=== PATIENT | female | born 1935 | race African-American/Black ===

== ENCOUNTER 2018-01-10 09:57 | Emergency (ER) | payer MEDICARE ==
[~2018-01-10] VITALS: Ht 165.1 cm; Wt 74.0 kg
[~2018-01-10 09:57] MED LIST: ASPI81 PO; CARV12.5 PO; ERGO50000 PO; HYDR12.56 PO; LISI-593 PO; MECL-62 PO; SPIR25TA PO
[2018-01-10 10:05] VITALS: BP 188/86; PULSE 109; RESP 16; TEMP 100.1; O2SAT 98
[2018-01-10] MEDS ORDERED: HYDR12.57 PO (10:35)
[2018-01-10] MEDS ORDERED: CARV12.52 PO (10:35)
[2018-01-10] MEDS ORDERED: LISI40TA PO (10:35)
[2018-01-10] MEDS ORDERED: LORTS PO (10:35)
[2018-01-10] MEDS ORDERED: LORA-392 PO (10:35)
[2018-01-10] MEDS ORDERED: CILO50TA PO (10:35)
[2018-01-10] MEDS ORDERED: ASPI81TA23 PO (10:35)
[2018-01-10] MEDS ORDERED: GLIP5TAB8 PO (10:35)
[2018-01-10] MEDS ORDERED: SPIR25TA PO (10:35)
[2018-01-10] MEDS ORDERED: NEUR600T PO (10:35)
[2018-01-10] MEDS ORDERED: MECL-62 PO (10:35)
[2018-01-10] MEDS ORDERED: DEXT1TAB18 PO (10:48)
--- NOTE | 2018-01-10 10:48 | PD ---
HPI Chief Complaint: Cold / Flu Symptoms Time Seen by Provider: 10:10 Travel History International Travel<30 days: No Contact w/Intl Traveler<30days: No Traveled to known affect area: No History of Present Illness HPI Is an 82-year-old woman who presents to the emergency department complaining of cough cold symptoms ongoing for the past several days. She has been sick for about 3 days now. She is a cough congestion body aches. Fevers and chills since today. Some headache with this as well. Little bit of left-sided earache. No nausea vomiting diarrhea, no chest pain, shortness of breath. No definite sick contacts. No history of lung disease. She otherwise had been feeling well and healthy prior to this. History Past Medical History Narrative Medical Diabetes CAD, history of stent Hypertension Possible chronic kidney disease, being followed by her doctor on blood work Tetanus Vaccination: Unknown Influenza Vaccination: No Para: 2 Social History Alcohol Use: Yes (occas) Tobacco Use: No Allergies-Medications (Allergen,Severity, Reaction): Coded Allergies: propoxyphene (Verified Allergy, Severe, Itching, 01/10/18) Opioids - Morphine Analogues (Verified Allergy, Intermediate, Hallucinations, 01/10/18) Reported Meds & Prescriptions Reported Meds & Active Scripts Active Mucinex DM Maximum Strength (Dextromethorphan-Guaifenesin ER 12 HR) 60-1,200 Mg Tab 1 Tab PO BID PRN 7 Days Reported Cilostazol 50 Mg Tab 50 Mg PO BID [Lortab] 5-325 Mg PO Q6HR Spironolactone 25 Mg Tab 25 Mg PO DAILY Ativan (Lorazepam) 0.5 Mg Tab 0.5 Mg PO Q6H PRN Glipizide 5 Mg Tab 5 Mg PO DAILY Take 30 minutes before a meal Neurontin (Gabapentin) 600 Mg Tab 600 Mg PO TID Meclizine (Meclizine HCl) 25 Mg Tab 25 Mg PO DIRECTED PRN Hydrochlorothiazide 12.5 Mg Cap 12.5 Mg PO DAILY Lisinopril 40 Mg Tab 40 Mg PO DAILY Carvedilol 12.5 Mg Tab 12.5 Mg PO BID Aspirin EC (Aspirin) 81 Mg Tabdr 81 Mg PO DAILY Review of Systems Except as stated in HPI: all other systems reviewed are Neg Physical Exam Narrative GENERAL: Well-appearing 82-year-old woman, no acute distress. SKIN: Focused skin assessment warm/dry. HEAD: Atraumatic. Normocephalic. EYES: Pupils equal and round. No scleral icterus. No injection or drainage. ENT: No nasal bleeding or discharge. Mucous membranes pink and moist. TMs normal. Throat is normal peer NECK: Trachea midline. No JVD. No significant adenopathy. CARDIOVASCULAR: Regular rate and rhythm. No murmur appreciated. RESPIRATORY: No accessory muscle use. Clear to auscultation. Breath sounds equal bilaterally. GASTROINTESTINAL: Abdomen soft, non-tender, nondistended. Hepatic and splenic margins not palpable. MUSCULOSKELETAL: No obvious deformities. No clubbing. No cyanosis. No edema. NEUROLOGICAL: Awake and alert. No obvious cranial nerve deficits. Motor grossly within normal limits. Normal speech. Data Data Last Documented VS Vital Signs Date Time Temp Pulse Resp B/P (MAP) Pulse Ox O2 Delivery O2 Flow Rate FiO2 01/10/18 10:05 100.1 109 16 188/86 (120) 98 Orders Orders Influenzae A/B Antigen (01/10/18 10:11) [facility] Medical Decision Making Medical Screen Exam Complete: Yes Emergency Medical Condition: Yes Interpretation(s) Influenza negative Differential Diagnosis Influenza, bronchitis, pneumonia, other Narrative Course Medical decision making INITIAL: 82-year-old woman presents emerged from a upper respiratory infection symptoms. Some low-grade fever. Normal pulmonary exam. Looks well. Likely acute bronchitis. Recommend supportive treatment. Diagnosis Primary Impression: Acute bronchitis Additional Instructions: Drink plenty fluids stay well-hydrated. Use acetaminophen or ibuprofen as needed for fever or body aches. Take Mucinex DM to help with cough. Follow-up with your primary doctor if you are not feeling completely well in the next 3-4 days. Return to the emergency department for any worsening trouble breathing, chest pain, or any other new or worsening symptoms. Med/Other Pt SpecificInfo: No Change to Meds Scripts Dextromethorphan-Guaifenesin ER 12 HR (Mucinex DM Maximum Strength) 60-1,200 Mg Tab 1 TAB PO BID Y for CHEST CONGESTION AND/OR COUGH for 7 Days, #14 TAB 0 Refills Prov: Jose Rafael Malone MD 01/10/18 Disposition: 01 DISCHARGE HOME Condition: Stable Jose Rafael Malone MD Jan 10, 2018 10:48
== END 2018-01-10 12:46 | disposition home or self-care (01) ==
LOC: PHEFT 09:57
DX: J20.9 Acute bronchitis, unspecified (principal); E11.9 Type 2 diabetes mellitus without complications; I10 Essential (primary) hypertension; I25.10 Atherosclerotic heart disease of native coronary artery without angina pectoris; Z95.5 Presence of coronary angioplasty implant and graft; Z79.82 Long term (current) use of aspirin; Z79.84 Long term (current) use of oral hypoglycemic drugs
CPT/HCPCS: 87804; 99283